=== PATIENT | female | born 1940 | race Caucasian/White ===

== ENCOUNTER 2020-02-08 17:22 | Emergency (ER) | payer OTHER, SELFPAY ==
[~2020-02-08] VITALS: Ht 165.1 cm; Wt 68.0 kg
[~2020-02-08 17:22] MED LIST: ALD25 PO; ALENDRONAT70 MG/75 M PO; CALCIUM; CALCIUM CARBONA PO; COZ50 PO; FOL1 PO; L20 PO; MAG PO; MAX PO; MIC8 PO; NAP500 PO; NOR5 PO; PRE30 PO; PRI20 PO; SLOFE PO; ZOC20 PO; ZYL100 PO
[2020-02-08 17:34] VITALS: Ht 165.1 cm; Wt 68.0 kg
[2020-02-08 18:48] LABS: BASOPHIL % 1.7 % (0-2); PLATELET COUNT 248 x10^3mcL (130-400); RED CELL DISTRIBUTION WIDTH 16.9 % (11.5-14.5)
[2020-02-08] MEDS ORDERED: ATORVASTATIN CA40 M1 PO (18:49)
[2020-02-08] MEDS ORDERED: DILTIAZEM HCL60 MG PO (18:49)
[2020-02-08] MEDS ORDERED: ELIQUIS2.5 MG PO (18:50)
[2020-02-08] MEDS ORDERED: PANTOPRAZOLE SO20 M1 PO (18:50)
[2020-02-08] MEDS ORDERED: FLOVENT HF0.11 MG/A1 INH (18:51)
[2020-02-08] MEDS ORDERED: PROAIR HFA8.5 GM IH (18:51)
[2020-02-08 19:01] LABS: CALCIUM 9.5 mg/dL (8.5-10.1); CARBON DIOXIDE 29.1 mmol/L (21-32); CHLORIDE SERUM 97 mmol/L (98-107); GLUCOSE SERUM 89 mg/dL (74-106); POTASSIUM SERUM 3.3 mmol/L (3.5-5.1); SODIUM SERUM 135 mmol/L (136-145)
[2020-02-08 19:03] LABS: microscopic required? YES; urine erythrocyte NEGATIVE (NEGATIVE)
[2020-02-08 19:05] LABS: ALBUMIN 3.5 g/dL (3.4-5.0); ALKALINE PHOSPHATASE 112 U/L (46-116); ALT/SGPT 21 U/L (14-59); AST/SGOT 28 U/L (15-37); BILIRUBIN TOTAL 0.5 mg/dL (0.20-1.00); TOTAL PROTEIN, SERUM 7.5 g/dL (6.4-8.2)
[2020-02-08 19:32] LABS: C REACTIVE PROTEIN 0.4 mg/dL (<=0.9)
[2020-02-08 23:08] VITALS: BP 92/75
== END 2020-02-08 23:08 | disposition home or self-care (01) ==
LOC: ED 17:22
PROVIDERS: Emergency Medicine
DX: N39.0 Urinary tract infection, site not specified (principal); J45.909 Unspecified asthma, uncomplicated; I10 Essential (primary) hypertension; E78.00 Pure hypercholesterolemia, unspecified; Z91.013 Allergy to seafood
CPT/HCPCS: 83880; 85378; 87804; J0696; J7060; Q0092

== ENCOUNTER 2020-04-11 20:21 | Emergency (ER) | payer OTHER ==
[~2020-04-11] VITALS: Ht 162.6 cm; Wt 64.9 kg
[~2020-04-11 20:21] MED LIST changes: +ATORVASTATIN CA40 M1 PO; +DILTIAZEM HCL60 MG PO; +ELIQUIS2.5 MG PO; +FLOVENT HF0.11 MG/A1 INH; +PANTOPRAZOLE SO20 M1 PO; +PROAIR HFA8.5 GM IH
[2020-04-11 20:45] VITALS: Ht 162.6 cm; Wt 64.9 kg
[2020-04-11 21:45] VITALS: BP 131/43
== END 2020-04-11 21:45 | disposition home or self-care (01) ==
LOC: ED 20:21
DX: R21 Rash and other nonspecific skin eruption (principal); J45.909 Unspecified asthma, uncomplicated; I10 Essential (primary) hypertension; M81.0 Age-related osteoporosis without current pathological fracture; Z95.0 Presence of cardiac pacemaker; Z90.49 Acquired absence of other specified parts of digestive tract; Z91.013 Allergy to seafood; Z88.5 Allergy status to narcotic agent